=== PATIENT | female | born 1970 | race Caucasian/White ===

== ENCOUNTER 2020-09-28 14:46 | Emergency (ER) | payer OTHER, SELFPAY ==
[2020-09-28] MEDS ORDERED: HYDROcodone/Acetaminophen 5/325 mg Tablet ONE (15:46)
[2020-09-28] MEDS ORDERED: Triple Antibiotic Oint 1 GM Packet ONE (16:17)
[2020-09-28] MEDS ORDERED: Lidocaine 1% 20 ML MDV ONE (16:17)
== END 2020-09-28 17:20 | disposition home or self-care (01) ==
LOC: MADERS 14:46
DX: S61.011A Laceration without foreign body of right thumb without damage to nail, initial encounter (principal); E03.9 Hypothyroidism, unspecified; Z79.899 Other long term (current) drug therapy; V89.2XXA Person injured in unspecified motor-vehicle accident, traffic, initial encounter
CPT/HCPCS: 12001